=== PATIENT | female | born 1985 | race Caucasian/White ===

== ENCOUNTER 2019-06-20 08:49 | Inpatient (IN) | payer OTHER ==
[2019-06-04 11:27] VITALS: BMI 27.2
[2019-06-20] MEDS ORDERED: MIDAZOLAM HCL 2 MG/2 ML SINGLE DOSE VIAL ONE (10:14)
[2019-06-20] MEDS ORDERED: ROCURONIUM BROMIDE 50 MG/5 ML SYRINGE ONE ×2 (10:14→11:07)
[2019-06-20] MEDS ORDERED: PROPOFOL 20 ML ONE ×3 (10:14→13:23)
[2019-06-20] MEDS ORDERED: LIDOCAINE HCL/PF 2% SDV 5ML VIAL ONE (10:17)
[2019-06-20] MEDS ORDERED: HEPARIN NA (PORCINE) 5,000 UNITS/ML 1ML VIAL ONE (10:23)
[2019-06-20] MEDS ORDERED: SODIUM CHLORIDE 0.9% P/F 10 ML VIAL IJ ONE (10:40)
[2019-06-20] MEDS ORDERED: ceFAZolin SODIUM 1 GM VIAL ONE ×2 (10:40→12:32)
[2019-06-20] MEDS ORDERED: VANCOMYCIN 1,000 MG VIAL (RESTRICTED TO ID ONLY) ONE (10:40)
[2019-06-20] MEDS ORDERED: TRANEXAMIC ACID 1000 MG/10 ML VIAL ONE ×2 (10:43→12:32)
[2019-06-20] MEDS ORDERED: VANCOMYCIN 1,000 MG in DEXTROSE 5%-WATER - 250 ML IVPB ONE (10:46)
[2019-06-20] MEDS ORDERED: CEFAZOLIN 2 GM in DEXTROSE 5%-WATER - 50 ML IVPB ONE (10:46)
[2019-06-20] MEDS ORDERED: TRANEXAMIC ACID 1000 MG/10 ML VIAL IVPUSH ONE (10:46)
[2019-06-20] MEDS ORDERED: DEXAMETHASONE SOD PHOSPHATE 4 MG/1 ML VIAL ONE (10:55)
[2019-06-20] MEDS ORDERED: ONDANSETRON 4 MG/2 ML VIAL ONE (10:55)
[2019-06-20] MEDS ORDERED: GLYCOPYRROLATE 0.2 MG/1 ML VIAL ONE (13:09)
[2019-06-20] MEDS ORDERED: NEOSTIGMINE METHYLSULFATE 0.5 MG/ML - 10 ML MDV ONE (13:09)
[2019-06-20] MEDS ORDERED: ONDANSETRON 4 MG/2 ML VIAL IVPUSH PRN ×2 (13:20→14:29)
[2019-06-20] MEDS ORDERED: MAGNESIUM HYDROX 2400MG/30ML ORAL SUSPENSION 30 ML CUP PO PRN (13:20)
[2019-06-20] MEDS ORDERED: MAG HYDROX/AL HYDROX/SIMETH 30 ML UNIT-DOSE CUP PO PRN (13:20)
[2019-06-20] MEDS ORDERED: LACTATED RINGERS SOLUTION 1,000 ML IV SCH (13:30)
[2019-06-20] MEDS: ACETAMINOPHEN 1000 MG/100 ML VIAL (NON FORMULARY) IVPB ONE ×2 (14:25→15:57)
[2019-06-20] MEDS ORDERED: HYDROmorphone HCL CARPU-JECT 1 MG/1 ML DISP.SYRIN IVPUSH PRN (14:29)
[2019-06-20] MEDS ORDERED: PROMETHAZINE HCL 25 MG/1 ML VIAL IVPUSH PRN (14:29)
--- NOTE | 2019-06-20 14:34 | PN ---
Progress Note (short form) - Note Progress Note: 34F s/p LEFT total hip replacement POD #0. -Pain control: per anaesthesia team. -DVT PPx: -Chemical: ASA 81mg PO BID x 6 weeks. -Mechanical: JUAN's, SCD's. -Incentive spirometry q15 min. -PT/OT/Rehab, OOB. -WBAT LLE. -Post-op Ancef x 3 doses. -f/u post-op TOV: 8 hours max. -f/u AM labs. -Diet as tolerated. -Care per medical hospitalist team. -Discharge planning: f/u [facility] [place] Office Tuesday06/29/2019; call for appointment . -Will follow. William Larkin MD (Orthopaedic Surgery).
--- NOTE | 2019-06-20 14:38 | OP ---
Operative Note - Note: Operative Date: 06/20/19 Pre-Operative Diagnosis: Left hip dysplasia. Left hip coxa magna Operation: Left total hip replacement Implants: DePuy. Cup - [place] Gription 54mm; 1 x 20mm acetabular screw. Poly - 28mm, neutral. Stem - SROM, Diameter 15mm, high offset (8mm). Head - 28mm, std length, Biolox/Delta Ceramic Post-Operative Diagnosis: Same as Pre-op Surgeon: William Larkin Boiler Welder: Cuong Larkin Anesthesiologist/VENEER DEPARTMENT MANAGER: Issa Washington Anesthesia: General Specimens Removed: Left femoral head Estimated Blood Loss (mls): 400 Blood Volume Replaced (mls): 125 (Cell Saver) Fluid Volume Replaced (mls): 1,700 (Crystalloid) Operative Report Dictated: Yes
[2019-06-20] MEDS: HYDROmorphone *PCA* 10MG/50ML DISP.SYRIN PCA SCH ×2 (14:46→15:58)
[2019-06-20] MEDS ORDERED: ceFAZolin 2 GRAM PREMIX BAG IVPB SCH (18:00)
[2019-06-20] MEDS: CEFAZOLIN 2 GM/D5W 2 GM/50 ML ML IVPB SCH (18:02)
[2019-06-20] MEDS ORDERED: CEFAZOLIN 1 GM/D5W 1 GM/50 ML BAG IVPB SCH (21:00)
[2019-06-20] MEDS: ACETAMINOPHEN 325 MG TABLET (FP) PO SCH (21:24)
[2019-06-20] MEDS: SENNOSIDES/DOCUSATE COMBO (SENNA PLUS) TABLET (UD) PO SCH (21:25)
[2019-06-20] MEDS: ASPIRIN 81 MG CHEWABLE TABLETS PO SCH (21:25)
[2019-06-21] MEDS: CEFAZOLIN 2 GM/D5W 2 GM/50 ML ML IVPB SCH ×2 (00:15→06:10)
[2019-06-21] MEDS: ACETAMINOPHEN 325 MG TABLET (FP) PO SCH ×2 (02:57→10:00)
[2019-06-21 08:20] LABS: HEMATOCRIT 31.2 % (32.4-45.2); HEMOGLOBIN 10.6 GM/dl (10.7-15.3); MCH 28.4 pg (25.7-33.7); MCHC 33.9 g/dl (32.0-36.0); MEAN CELL VOLUME 83.6 fl (80-96); MEAN PLT VOLUME 7.4 fl (7.5-11.1); PLATELET COUNT 291 K/MM3 (134-434); RBC 3.73 M/mm3 (3.60-5.2); RDW 11.6 % (11.6-15.6); WHITE BLOOD COUNT 15.1 K/mm3 (4.0-10.8)
--- NOTE | 2019-06-21 08:20 | PN ---
Progress Note (short form) - Note Progress Note: POD 1, s/p Left total hip replacement Pt seen and examined. Reports she is feeling well. no issues overnight. Only complaint is feeling tired/sleepy from the FISHER TRAP. Requesting alternative pain regimen. Tolerating PO. Has been oob to restroom, voiding without issue. Denies fever/chills/n/v/d, motor/sensory deficits. Vital Signs Temp 98.0 F 06/21/19 05:00 Pulse 74 06/21/19 05:00 Resp 18 06/21/19 05:00 BP 101/51 L 06/21/19 05:00 Pulse Ox 99 06/21/19 05:00 Intake & Output 06/20/19 06/20/19 06/21/19 11:59 23:59 11:59 Intake Total 2525 1300 Output Total 1200 Balance 1325 1300 Weight 190 lb Intake: IV 1900 1000 Lactated Ringers Solution 1000 1,000 ml @ 125 mls/hr IV ASDIR SOFY Rx#: [id number] IVPB 50 Oral 500 250 Blood Product 125 Output: Urine 800 Estimated Blood Loss 400 Other: Voiding Method Toilet Toilet # Unmeasured Voids Void 2 Height 5 ft 10 in Body Mass Index (BMI) 27.2 Weight Measurement Method Standing Scale Gen: awake, alert, nad Resp: unlabored on RA Ext: L hip dressing c/d/i. Thigh with mild-moderate swelling, compartments soft , no visible ecchymosis. 5/5 B/L LE DF/PF/EHL/FHL, SILT b/l les A/P: 34 y/o F w/ Left hip dysplasia,, now POD 1, s/p Left total hip replacement afebrile, bp slightly low (?FISHER TRAP) Labs stable S/P L TKA R TKA POD #0 - Pain control: FISHER TRAP d/c'ed, Oxy 5/10mg q4hrs prn ordered, Ofirmev 1g q6hrs scheduled -DVT PPx: -Chemical: ASA 81 mg po BID x 6 weeks -Mechanical: JUAN's, SCD's -Incentive Spirometry. -PT/OT/Rehab, OOB. -WBAT LLE -Posterior L hip precautions. -Hip abduction pillow -Care per medical hospitalist team. -Discharge planning: f/u [facility] [place] office ship yard electrical person for appointment: -Will follow. message sent to attending Dr Larkin regarding above
[2019-06-21 08:26] LABS: CALCIUM 8.7 mg/dl (8.5-10); CREATININE 0.6 mg/dl (0.55-1.3); POTASSIUM 4.5 mmol/L (3.5-5.1)
[2019-06-21] MEDS ORDERED: oxyCODONE HCL 5 MG TABLET PO PRN (09:08)
[2019-06-21] MEDS: PANTOPRAZOLE 40 MG TABLET (FP) PO SCH (10:02)
[2019-06-21] MEDS: ACETAMINOPHEN 1000 MG/100 ML VIAL (NON FORMULARY) IVPB SCH ×3 (10:02→21:29)
[2019-06-21] MEDS: SENNOSIDES/DOCUSATE COMBO (SENNA PLUS) TABLET (UD) PO SCH ×2 (10:03→21:27)
[2019-06-21] MEDS: ASPIRIN 81 MG CHEWABLE TABLETS PO SCH ×2 (10:03→21:28)
[2019-06-21] MEDS ORDERED: oxyCODONE HCL 10 MG SUSTAINED ACTING TABLET PO ONE (10:03)
--- NOTE | 2019-06-21 10:08 | PN ---
Progress Note, Physician Chief Complaint: s/p hi arthroplasty under general anesthesia History of Present Illness: post op day one, psychiatric nurse for post op pain control - Current Medication List Current Medications: Active Medications Acetaminophen (Ofirmev Injection -) 1,000 mg IVPB Q6H [facility] Stop: 06/22/19 03:16 Last Admin: 06/21/19 10:02 Dose: 1,000 mg Al Hydroxide/Mg Hydroxide (Mylanta Oral Suspension -) 30 ml PO Q4H PRN PRN Reason: DYSPEPSIA Aspirin (Asa -) 81 mg PO BID [facility] Last Admin: 06/21/19 10:03 Dose: 81 mg Magnesium Hydroxide (Milk Of Magnesia -) 30 ml PO PRN PRN PRN Reason: CONSTIPATION Ondansetron HCl (Zofran Injection) 4 mg IVPUSH Q6H PRN PRN Reason: NAUSEA Ondansetron HCl (Zofran Injection) 4 mg IVPUSH Q6H PRN PRN Reason: NAUSEA AND/OR VOMITING Last Admin: 06/20/19 15:40 Dose: 4 mg Oxycodone HCl (Roxicodone -) 5 mg PO Q4H PRN PRN Reason: PAIN LEVEL 1-5 Oxycodone HCl (Roxicodone -) 10 mg PO Q4H PRN PRN Reason: PAIN LEVEL 6-10 Pantoprazole Sodium (Protonix -) 40 mg PO DAILY [facility] Last Admin: 06/21/19 10:02 Dose: 40 mg Promethazine HCl (Phenergan Injection -) 12.5 mg IVPUSH Q6H PRN PRN Reason: NAUSEA-FOR RESCUE AFTER 15 MIN Senna/Docusate Sodium (Pericolace -) 2 tablet PO BID [facility] Last Admin: 06/21/19 10:03 Dose: 2 tablet - Objective Vital Signs: Vital Signs Temperature 98.6 F 06/21/19 09:00 Pulse Rate 72 06/21/19 09:00 Respiratory Rate 18 06/21/19 09:00 Blood Pressure 116/51 L 06/21/19 09:00 O2 Sat by Pulse Oximetry (%) 99 06/21/19 08:58 Constitutional: Yes: Well Nourished Cardiovascular: Yes: WNL Respiratory: Yes: WNL Gastrointestinal: Yes: WNL Labs: CBC, BMP 06/21/19 07:20 06/21/19 07:20 Assessment/Plan Nausea and vomiting last night now resolved, pain controlled by psychiatric nurse, tolerating po, will convert to PO analgesia
[2019-06-21] MEDS ORDERED: oxyCODONE HCL 10 MG SUSTAINED ACTING TABLET PO SCH (10:15)
--- NOTE | 2019-06-21 11:00 | HP ---
Admitting History and Physical - Admission Chief Complaint: Post Opertive Evalaution s/p Left Hip THR History of Present Illness: 34 yrs old F H/O choriocarcinoma s/p hysterectomy almost 10 yrs ago, Left Hip congenital dysplesia, yesterday underwent Left THR POD-1, post operatively evaluated and examined by me, c/o pain Left Hip but able to participate in PT denies any fever, chest pain or SOB able to participate in PT. History Source: Patient - Past Medical History ...LMP Comment: PT HAD AN HYSTERECTOMY ...: No Heme/Onc: Yes: Other (Choriocarcinoma) - Past Surgical History Past Surgical History: Yes: Hysterectomy (10 yrs ago) - Smoking History Smoking history: Former smoker Have you smoked in the past 12 months: Yes If you are a former smoker, when did you quit?: 2012 - Alcohol/Substance Use Hx Alcohol Use: Yes (SOCIALLY) - Social History Usual Living Arrangement: Yes: With Spouse History of Recent Travel: No Home Medications - Allergies Allergies/Adverse Reactions: Allergies Allergy/AdvReac Type Severity Reaction Status Date / Time No Known Drug Allergies Allergy Verified 06/04/19 11:21 - Home Medications Home Medications: Ambulatory Orders NK [No Known Home Medication] 01/31/19 Family Medical History Family Hx Cancer: Brother (Renal) Family Hx Diabetes: Father Review of Systems - Review of Systems Constitutional: denies: Chills, Diaphoresis, Fever, Lethargy Eyes: denies: Blind Spots, Blurred Vision, Double Vision HENT: denies: Difficult Swallowing, Ear Discharge, Ear Pain, Epistaxis Neck: denies: Decreased ROM, Lumps, Pain on Movement, Stiffness Cardiovascular: denies: Chest Pain, Edema, Palpitations, Shortness of Breath Respiratory: denies: Cough, Exercise Intolerance, Hemoptysis, Orthopnea Gastrointestinal: denies: Abdominal Pain, Bloating, Constipation, Diarrhea, Dysphagia, Melena, Nausea, Rectal Bleeding, Vomiting Genitourinary: denies: Burning, Discharge, Dysuria, Flank Pain Musculoskeletal: reports: Joint Pain (Left Hip). denies: Back Pain, Crepitus, Decreased ROM, Extremity Pain Integumentary: denies: Blister, Bruising, Change in Color, Eczema Neurological: denies: Change in LOC, Change in Speech, Confusion, Dizziness Endocrine: denies: Excessive Sweating, Flushing, Increased Hunger Hematology/Lymphatic: denies: Easily Bruised, Excessive Bleeding, Swollen Glands Psychiatric: denies: Altered Sleep Pattern Pain Intensity: 5 Physical Examination Vital Signs: Vital Signs Temperature 98.6 F 06/21/19 09:00 Pulse Rate 72 06/21/19 09:00 Respiratory Rate 18 06/21/19 09:00 Blood Pressure 116/51 L 06/21/19 09:00 O2 Sat by Pulse Oximetry (%) 99 06/21/19 08:58 Young F not in distress HEENT: mm moist, no anemia, PERRLA EOMI NECK: No JVD No Bruit CHEST: CTA B/L CVS: S1S2 R no m/g/r ABD: No distention, non tender Bs + EXT: Left Hip s/p arthropalsty , No edema feet OTOLARYNGOLOGIST: AOX3 non focal Labs: CBC, BMP 06/21/19 07:20 06/21/19 07:20 Problem List - Problems (1) Status post left hip replacement Assessment/Plan: POD 1 , pain control, mobility as advised by PT and ortho DVT prophylaxis Problems reviewed: Yes Code(s): Z96.642 - PRESENCE OF LEFT ARTIFICIAL HIP JOINT Assessment/Plan Active Medications Acetaminophen (Ofirmev Injection -) 1,000 mg IVPB Q6H [facility] Stop: 06/22/19 03:16 Last Admin: 06/21/19 10:02 Dose: 1,000 mg Al Hydroxide/Mg Hydroxide (Mylanta Oral Suspension -) 30 ml PO Q4H PRN PRN Reason: DYSPEPSIA Aspirin (Asa -) 81 mg PO BID [facility] Last Admin: 06/21/19 10:03 Dose: 81 mg Magnesium Hydroxide (Milk Of Magnesia -) 30 ml PO PRN PRN PRN Reason: CONSTIPATION Ondansetron HCl (Zofran Injection) 4 mg IVPUSH Q6H PRN PRN Reason: NAUSEA Ondansetron HCl (Zofran Injection) 4 mg IVPUSH Q6H PRN PRN Reason: NAUSEA AND/OR VOMITING Last Admin: 06/20/19 15:40 Dose: 4 mg Oxycodone HCl (Roxicodone -) 5 mg PO Q4H PRN PRN Reason: PAIN LEVEL 1-5 Oxycodone HCl (Roxicodone -) 10 mg PO Q4H PRN PRN Reason: PAIN LEVEL 6-10 Oxycodone HCl (Oxycontin -) 10 mg PO BID [facility] Last Admin: 06/21/19 10:34 Dose: Not Given Pantoprazole Sodium (Protonix -) 40 mg PO DAILY [facility] Last Admin: 06/21/19 10:02 Dose: 40 mg Promethazine HCl (Phenergan Injection -) 12.5 mg IVPUSH Q6H PRN PRN Reason: NAUSEA-FOR RESCUE AFTER 15 MIN Senna/Docusate Sodium (Pericolace -) 2 tablet PO BID [facility] Last Admin: 06/21/19 10:03 Dose: 2 tablet
[2019-06-21] MEDS: oxyCODONE HCL 10 MG SUSTAINED ACTING TABLET PO SCH ×2 (12:00→21:27)
[2019-06-21] MEDS: oxyCODONE HCL 5 MG TABLET PO PRN ×2 (15:22→19:22)
--- NOTE | 2019-06-21 15:39 | OP ---
Date of Operation: 06/20/2019 Pre-Operative Diagnosis: 1. Left hip dysplasia; 2. Osteoarthritis left hip. Post-Operative Diagnosis: 1. Left hip dysplasia; 2. Osteoarthritis left hip. Procedure Performed: Left total hip replacement. Findings: Left hip coxa magna. Surgeon: William Larkin M.D. Resistor Winder: Cuong Larkin M.D. Anesthesia: General endotracheal tube intubation. Position: Supine Incision: Lateral. Specimens Removed: Bone, soft tissue. Estimated Blood Loss: 400 mL. Intravenous Fluid: 1.7L crystalloid. Specimens: Left femoral head. Drains: None. Complications: None. Urine Output: None. Bacteriology: None. Transfusions: 125c Cell Saver. Closure: No. 1 Vicryl, 2-0 Biosyn absorbable sutures. Indications: The patient was indicated for a left total hip replacement in order to facilitate improved motion and mobilization, and to prevent the complications associated with a sedentary lifestyle. The patient was identified in the holding area by her armband. A long discussion was held with the patient in the presence of her family regarding the risks, benefits and alternatives of the above named procedure. Risks include but are not limited to: pain, bleeding, infection, damage to surrounding structures (including nerves, blood vessels, skin, ligaments, tendons and bone), wound complications, failure of hardware/implants/reduction, need for further surgery, blood clots, myocardial infarction, pulmonary embolism , cerebrovascular insult, anaesthesia complications, compartment syndrome, limb loss, limp, loss of function, and . Benefits as mentioned above. Alternatives include no surgery. All questions were answered. The patient understood and agreed to the procedure. Informed consent was obtained, witnessed and verified. The patients correct operative limb - that is the left lower extremity - was marked, and the patient was taken to the operating room after being seen by the anesthesia and nursing staff. Procedure: The patient was brought into the operating room, placed on the OR table and secured with a safety strap. Consent and the operative site were again verified with the patient and nursing and anaesthesia staff. Anaesthesia was then administered. This included 2g IV Ancef, 1g IV Vancomycin, and 1g IV tranexamic acid (TXA). The patient was placed in the supine position with the greater trochanter lying at the edge of the table, thus freeing the muscles of the buttock from the table. All bony prominences were well padded. The non-operative limb was loosely secured to the operating table using a Kerlix bandage. With respect to the pelvis, the limb lengths were accurately compared. The operative limb was prepped in standard sterile fashion using betadine prep & scrub, alcohol, and DuraPrep, and then free draped. A time out was done, led by me the attending surgeon, and the case began. With the patient in the supine position, a modified lateral (Hardinge) approach was utilized to access the hip. The skin incision was centered over the greater trochanter proximally, at the level of the anterior-superior iliac spine, and extended distally, ending 3-5cm distal to the vastus ridge, along the anterior border of the femur. Subcutaneous dissection was carried down to the level of the iliotibial band which was split longitudinally in line with its fibers. The gluteus merary muscle was split proximally in line with its fibers to the level of the apex of the incision. A standard Charnley retractor was then placed subfascially to expose the deep structures. Using electrocautery, a hockey stick incision was utilized to split the anterior 1/4 fibers of gluteus medius and gain access to the hernesto-lateral femur. This ended parallel to the femur at the entry point to the Field-Maher window. Electrocautery was then used to expose the anterior neck of the femur. The supero-lateral and infero-medial hip capsule was then incised and anterior radial capsular cuts were made as needed. An anterior acetabular retractor was then placed to facilitate exposure. The operative limb was adducted across the midline and the hip was externally rotated - with the knee flexed using the tibia as a lever - to facilitate an anterolateral hip dislocation. A femoral neck cut was made approximately 1cm proximal to the lesser trochanter using an oscillating saw. The femoral head was delivered out of the operative field. Coxa magna was confirmed. The operative limb was then brought back onto the table and the ankles were crossed. Posterior and inferior acetabular retractors were then placed. The acetabulum was then reamed in sequentially increasing diameter using sharp domed basket reamers. A final size 53mm reamer was used, ensuring concentric acetabular bone bed preparation. A DePuy [place] Gription cup, size 54mm cup was then impacted, achieving solid press fit in the desired orientation based on pelvic alignment. Despite excellent fixation, we elected to supplement cup fixation with a single 20mm acetabular screw. A neutral 28mm highly cross-linked UHMWPE liner was then implanted. All retractors were removed. The operative limb was adducted and externally rotated to allow visualization of the proximal femur. A sharp Hohmann retractor was placed posterior to the tip of the greater trochanter to protect the hip abductor. A rotating awl was used to begin the femoral preparation. A sharp, end cutting reamer was used to manually gain entry to the femoral canal. The proximal femoral bone bed was prepared in standard fashion for implantation with a DePuy S-ROM stem. This included using power reamers and milling drills. The tibia was used as a goniometer with which we could accurately dial in our desired femoral anteversion. Modular femoral stem, neck, and head trial components were assembled and the hip was reduced. In the supine position, the true limb lengths were almost matched. The hip was then reduced and stability was ensured in all physiologic positions of compromise. This included flexion to 90 degrees with adduction and internal rotation. This also included extension and external rotation. At no point did the trunion impinge upon the cup. A 15mm diameter, 8mm high-offset DePuy S-ROM stem was then implanted using mallet strikes until achieving solid press-fit. A 28mm diameter, standard length Biolox/Delta Ceramic head head was then impacted using a protective head impacter and mallet strikes. Meticulous technique was implemented to avoid any implants coming into contact with free edges of the wound & skin. As before, the hip was reduced and stability was ensured in all physiologic positions of compromise. Again, in the supine position, the true limb lengths were almost exactly matched. The myofascial tension surrounding the left hip joint was balanced. The operative limb lay in physiologic 15 degrees of external rotation. The wounds were copiously irrigated throughout the case and hemostatis was assured. No drain was utilized. The split gluteus medius muscle fibers were reattached using #1 vicryl sutures. The iliotibial band, gluteus merary fascia, and subcutaneous tissues were closed using #1 vicryl sutures. The skin was closed using a running 2-0 Biosyn suture. A sterile compressive dressing was applied. A hip abduction pillow was placed between the legs. The patient was transferred to a hospital bed. A post-operative x-ray was taken with the patient on the hospital bed. This showed the hip to be well reduced with all implants in place and no evidence of dominique-prosthetic fracture or retained foreign body. The patient was then transferred to the recovery room in stable condition, as per the anesthesia team, having tolerated the procedure well. William Larkin MD [id number] MTDD
[2019-06-21] MEDS ORDERED: KETOROLAC TROMETHAMINE 30 MG/1 ML VIAL IVPUSH ONE (20:30)
[2019-06-22] MEDS: oxyCODONE HCL 5 MG TABLET PO PRN ×3 (00:33→16:36)
[2019-06-22] MEDS: ACETAMINOPHEN 1000 MG/100 ML VIAL (NON FORMULARY) IVPB SCH (04:48)
--- NOTE | 2019-06-22 07:19 | PROC ---
Procedure Note Procedure: POD #2, s/p Left total hip replacement. Pt seen and examined. Reports she is feeling well. no issues overnight. Only complaint is feeling tired/sleepy from the WIND OPERATIONS SUPERVISOR. Requesting alternative pain regimen. Tolerating PO. Has been oob to restroom, voiding without issue. Denies fever/chills/n/v/d, motor/sensory deficits. Vital Signs Temp 98.0 F 06/21/19 05:00 Pulse 74 06/21/19 05:00 Resp 18 06/21/19 05:00 BP 101/51 L 06/21/19 05:00 Pulse Ox 99 06/21/19 05:00 Intake & Output 06/20/19 06/20/19 06/21/19 11:59 23:59 11:59 Intake Total 2525 1300 Output Total 1200 Balance 1325 1300 Weight 190 lb Intake: IV 1900 1000 Lactated Ringers Solution 1000 1,000 ml @ 125 mls/hr IV ASDIR SOFY Rx#: [id number] IVPB 50 Oral 500 250 Blood Product 125 Output: Urine 800 Estimated Blood Loss 400 Other: Voiding Method Toilet Toilet # Unmeasured Voids Void 2 Height 5 ft 10 in Body Mass Index (BMI) 27.2 Weight Measurement Method Standing Scale Gen: awake, alert, nad Resp: unlabored on RA Ext: L hip dressing c/d/i. Thigh with mild-moderate swelling, compartments soft , no visible ecchymosis. 5/5 B/L LE DF/PF/EHL/FHL, SILT b/l les A/P: 34 y/o F w/ Left hip dysplasia,, now POD 1, s/p Left total hip replacement afebrile, bp slightly low (?WIND OPERATIONS SUPERVISOR) Labs stable S/P L TKA R TKA POD #0 - Pain control: WIND OPERATIONS SUPERVISOR d/c'ed, Oxy 5/10mg q4hrs prn ordered, Ofirmev 1g q6hrs scheduled -DVT PPx: -Chemical: ASA 81 mg po BID x 6 weeks -Mechanical: JUAN's, SCD's -Incentive Spirometry. -PT/OT/Rehab, OOB. -WBAT LLE -Posterior L hip precautions. -Hip abduction pillow -Care per medical hospitalist team. -Discharge planning: f/u [facility] [place] office concrete tile machine operator for appointment: -Will follow.
[2019-06-22 08:11] LABS: BASO % 0.4 % (0-2.0); EOS % 0.7 % (0-4.5); HEMATOCRIT 30.1 % (32.4-45.2); HEMOGLOBIN 9.8 GM/dl (10.7-15.3); MCH 27.4 pg (25.7-33.7); MCHC 32.5 g/dl (32.0-36.0); MEAN CELL VOLUME 84.3 fl (80-96); MEAN PLT VOLUME 7.4 fl (7.5-11.1); MONO % 6.5 % (3.8-10.2); NEUT % 82.4 % (42.8-82.8); PLATELET COUNT 232 K/MM3 (134-434); RBC 3.57 M/mm3 (3.60-5.2); RDW 11.6 % (11.6-15.6); WHITE BLOOD COUNT 12.7 K/mm3 (4.0-10.8)
--- NOTE | 2019-06-22 08:40 | PN ---
Progress Note (short form) - Note Progress Note: POD #2, s/p Left total hip replacement. Pt seen and examined. Patient reports having lots of pain overnight although it is more under control this morning. Tolerating PO. Has been oob to restroom, voiding without issue. Denies fever/chills/n/v/d, motor/sensory deficits. Vital Signs Temp 99.4 F 06/22/19 06:00 Pulse 91 H 06/22/19 06:00 Resp 19 06/22/19 08:23 BP 107/52 L 06/22/19 06:00 Pulse Ox 98 06/22/19 08:23 Intake & Output 06/21/19 06/21/19 06/22/19 11:59 23:59 11:59 Intake Total 1300 900 Balance 1300 900 Intake: IV 1000 Lactated Ringers Solution 1000 1,000 ml @ 125 mls/hr IV ASDIR SOFY Rx#: [id number] IVPB 50 Oral 250 900 Other: Voiding Method Toilet Toilet Toilet # Unmeasured Voids Void 2 CBC, BMP 06/22/19 07:25 06/21/19 07:20 PE: Gen: awake, alert, nad Resp: unlabored on RA Ext: L hip dressing c/d/i. Thigh with mild-moderate swelling, compartments soft , no visible ecchymosis. 5/5 B/L LE DF/PF/EHL/FHL, SILT b/l les with +2 pedal pulses Problem List - Problems (1) Status post left hip replacement Assessment/Plan: A/P: 34 y/o F w/ Left hip dysplasia,, now POD 2, s/p Left total hip replacement afebrile Labs stable S/P L TKA R TKA POD #2 - Pain control: CONCRETE BUILDINGS ASSEMBLER d/c'ed, Oxy 5/10mg q4hrs prn ordered, Ofirmev 1g q6hrs scheduled, will add flexeril -DVT PPx: -Chemical: ASA 81 mg po BID x 6 weeks -Mechanical: JUAN's, SCD's -Incentive Spirometry. -PT/OT/Rehab, OOB. -WBAT LLE -Posterior L hip precautions. -Hip abduction pillow -Care per medical hospitalist team. -Discharge planning for home today f/u [facility] [place] office control supervisor for appointment: Problems reviewed: Yes Code(s): Z96.642 - PRESENCE OF LEFT ARTIFICIAL HIP JOINT
[2019-06-22] MEDS: SENNOSIDES/DOCUSATE COMBO (SENNA PLUS) TABLET (UD) PO SCH (09:00)
[2019-06-22] MEDS: oxyCODONE HCL 10 MG SUSTAINED ACTING TABLET PO SCH (09:00)
[2019-06-22] MEDS: ASPIRIN 81 MG CHEWABLE TABLETS PO SCH (09:00)
[2019-06-22] MEDS: PANTOPRAZOLE 40 MG TABLET (FP) PO SCH (09:00)
--- NOTE | 2019-06-22 11:47 | DS ---
"Physical Exam: SUBJECTIVE: Patient seen and examined at the bedside. feels well, denies pain. cleared by surgery for d/c home. OBJECTIVE: wbc trending down, cleared by surgery for dc home POD #2, s/p Left total hip replacement. Vital Signs Period Temp Pulse Resp BP Sys/Whyte Pulse Ox Last 24 Hr 98.5 F-99.4 F 85-94 16-19 101-114/47-56 95-99 PHYSICAL EXAM GENERAL: The patient is awake, alert, and fully oriented, in no acute distress. HEAD: Normal with no signs of trauma. EYES: PERRL, extraocular movements intact, sclera anicteric, conjunctiva clear. ENT: Ears normal, nares patent, oropharynx clear without exudates, moist mucous membranes. NECK: Trachea midline, full range of motion, supple. ABDOMEN: Soft, nontender, nondistended, normoactive bowel sounds, no guarding, no rebound, no hepatosplenomegaly, no masses. PSYCH: Normal mood, normal affect. SKIN: Warm, dry, normal turgor, no rashes or lesions noted. LABS Laboratory Results - last 24 hr 06/22/19 07:25 WBC 12.7 H RBC 3.57 L Hgb 9.8 L Hct 30.1 L MCV 84.3 MCH 27.4 MCHC 32.5 RDW 11.6 Plt Count 232 MPV 7.4 L Absolute Neuts (auto) 10.4 Neutrophils % 82.4 Lymphocytes % 10.0 Monocytes % 6.5 Eosinophils % 0.7 Basophils % 0.4 HOSPITAL COURSE: Date of Admission:06/20/19 Date of Discharge: 06/22/19 Minutes to complete discharge: 45 Discharge Summary Problems reviewed: Yes Reason For Visit: LEFT HIP OSTEOARTHRITIS Current Active Problems Status post left hip replacement (Acute) Condition: Stable - Instructions Diet, Activity, Other Instructions: Dr. Larkin Discharge Instructions for Hip Replacement Post Operative Instructions Physical activity Physical Therapist will come to your home for the first 5 days. You will be set up with outpatient PT at your first post-operative visit. Use assistive devices for ambulation at all times. Weight bearing as tolerated on your surgical side. Wound care Leave your surgical dressing in place. Do not change the dressing until seen by your surgeon in the office. No baths or showers. Do not submerge your incision. Do not apply any ointments or lotions to your incision. Please call the office if your dressing is soiled/dirty or is falling off. Apply Graduated Compression Stockings (TEDS) to both lower extremities-remove daily for hygiene ONLY. Diet There are no dietary restrictions. Eat healthy, high-fiber foods. Drink 6 to 8 glasses of liquid each day. This will assist in keeping your bowels are regular. Pain management Any pain prescription medication ordered should be taken as prescribed for moderate to severe pain. Do not take additional Tylenol while taking Percocet. Posterior Hip Precautions: Do not cross the leg you had surgery on over your other leg. (Do not cross your legs.)Use an elevated toilet seat. Do not sit on low chairs or beds. Use purple pillow (abductor) when lying in bed. Take Aspirin 81 mg two times a day for a total of 6 weeks to prevent blood clots. Call Dr. Larkin for any of the following: Severe pain not relieved by medication Fever of 101 or higher Excessive bleeding or drainage on dressing Inability to urinate If you experience chest pain or shortness of breath, please seek emergency care immediately. ISTOP: This report was requested by: Angie Pereyra | Reference #: [id number] Please call the office at to confirm your post-op appointment for the week following surgery. Disposition: HOME - Home Medications Comprehensive Discharge Medication List: Ambulatory Orders Cyclobenzaprine HCl [Flexeril -] 10 mg PO TID PRN #21 tablet 06/22/19 Docusate Sodium [Colace] 100 mg PO TID PRN #30 capsule 06/22/19 oxyCODONE HCL [Roxicodone -] 5 - 10 mg PO Q4H PRN #30 tablet MDD 12 06/22/19 Problem List - Problems (1) Status post left hip replacement Code(s): Z96.642 - PRESENCE OF LEFT ARTIFICIAL HIP JOINT This patient is new to me today: Yes Date on this admission: 06/22/19 Emergency Visit: Yes ED Registration Date: 06/20/19 Care time: The patient presented to the Emergency Department on the above date and was hospitalized for further evaluation of their emergent condition. Critical Care patient: No - Discharge Referral Referred to [facility] No"
[2019-06-22] MEDS ORDERED: CYCLOBENZAPRINE HCL 5 MG TABLET PO SCH (14:00)
[2019-06-22 15:16] VITALS: TEMP 98.7
[2019-06-22 16:35] VITALS: BP 102/54; PULSE 90
--- NOTE | 2019-06-24 15:58 | PN ---
Progress Note (short form) - Note Progress Note: 34F s/p LEFT total hip replacement POD #2. Pain well controlled. No acute events overnight. Pt. denies overnight history of headaches, chest pain, shortness of breath, nausea, vomiting, chills, & sweats. (+) Voiding; (+) Flatus; (-) BM. Pt. walked in hallway with physical therapy team. All labs and vitals reviewed. PE: AAO x 3, NAD. L-Hip: Dressing C/D/I. NVI distally. 34F s/p LEFT total hip replacement POD #2. -Pain control: per anaesthesia team. -DVT PPx: -Chemical: ASA 81mg PO BID x 6 weeks. -Mechanical: JUAN's, SCD's. -Incentive spirometry q15 min. -PT/OT/Rehab, OOB. -WBAT LLE. -f/u AM labs. -Diet as tolerated. -Care per medical hospitalist team. -Discharge planning: f/u [facility] [place] Office Tuesday06/29/2019; call for appointment . -Will follow. William Larkin MD (Orthopaedic Surgery).
--- NOTE | 2019-06-26 12:11 | PATH ---
Surgical Pathology Report Patient Name: BETTY EPSTEIN Med. Rec. #: [id number] /Age/Gender: 1985 (Age: 34) / F Account: [id number] Location: [facility] MED-SURG Taken: 06/20/2019 Received: 06/20/2019 Reported: 06/26/2019 Physicians: William Larkin M.D. Specimen(s) Received LEFT HIP FEMORAL HEAD Clinical History Left hip osteoarthritis Final Diagnosis HIP, FEMORAL HEAD, LEFT, TOTAL HIP REPLACEMENT: HIP DYSPLASIA /COXA MAGNA (CLINICAL). DEGENERATIVE JOINT DISEASE. Electronically Signed Dottie Dean M.D. Gross Description Received in formalin, labeled "left hip femoral head," is a 6.0 x 5.5 x 3.8 cm. markedly deformed femoral head with a 1 cm in length portion of femoral neck attached. The margin of resection is smooth. There is a 3.3 cm greatest dimension area of eburnation present. The remaining articular surface is bennett-yellow and diffusely nodular and granular. The underlying trabecular bone is yellow and hard. A media sales representative section is submitted in one cassette, following decalcification. /06/21/2019 saudi06/21/2019
== END 2019-06-22 19:39 | disposition home or self-care (01) | DRG 470 ==
LOC: FM/S 08:49
PROVIDERS: ADMIT Orthopaedic Surgery Adult Reconstructive Orthopaedic Surgery; ATTEND Nurse Practitioner Family
PROC: 0SRB03A Replacement of Left Hip Joint with Ceramic Synthetic Substitute, Uncemented, Open Approach (ICD-10-PCS; principal; 2019-06-20 11:22)
DX: M16.12 Unilateral primary osteoarthritis, left hip (principal)
CPT/HCPCS: 36415; 73502-TC-LT-FY; 80048; 85025; 85027; 88305-TC; 88311-TC; 94760; 97116-GP; 97163-GP; J0131; J1644